=== PATIENT | female | born 1960 | race Caucasian/White ===

== ENCOUNTER 2019-08-17 07:08 | Day surgery (SDC) | payer OTHER ==
[~2019-08-17] VITALS: Ht 162.6 cm; Wt 93.9 kg
[2019-08-17] MEDS ORDERED: FUROSEMIDE 40 MG/4 ML VIAL ONE (12:17)
[2019-08-17] MEDS ORDERED: DILTIAZEM HCL 25 MG/5 ML VIAL ONE (12:30)
[2019-08-17 13:05] VITALS: BP_SYST 134
[2019-08-17] MEDS ORDERED: DILTIAZEM HCL 25 MG/5 ML VIAL IVP ONE (13:15)
[2019-08-17 14:21] LABS: CALCIUM 7.8 mg/dL (8.4-11.0); CREATININE 4.37 mg/dL (0.55-1.30); POTASSIUM 4.5 mmol/L (3.5-5.1)
[2019-08-17 20:31] LABS: BASOPHILS % (AUTO) 0.5 % (0.0-2.0); EOSINOPHILS # (AUTO) 0.2 K/uL (0.0-0.4); EOSINOPHILS % (AUTO) 3.8 % (0.0-4.0); HEMOGLOBIN 10.4 g/dL (12.0-16.0); LYMPHOCYTES % (AUTO) 31.4 % (20.5-51.5); MEAN CORPUSCULAR HEMOGLOBIN 31 pg (27-31); MEAN CORPUSCULAR HGB CONC 34 % (32-36); MEAN CORPUSCULAR VOLUME 93 fL (79.0-98.0); MONOCYTES # (AUTO) 0.6 K/uL (0.0-1.0); MONOCYTES % (AUTO) 9.8 % (1.7-9.3); NEUTROPHILS # (AUTO) 3.4 K/uL (1.8-7.7); NEUTROPHILS % (AUTO) 54.5 % (40.0-70.0); PLATELET COUNT (AUTO) 179 K/uL (130-430); RED BLOOD CELL COUNT(AUTO) 3.33 MIL/uL (4.2-6.2); RED CELL DISTRIBUTION WIDTH 12.5 % (9.0-15.0); WHITE BLOOD COUNT (AUTO) 6.3 K/uL (4.8-10.8)
[2019-08-17 20:32] LABS: INR 0.9 (0.8-1.2)
[2019-08-17 20:33] LABS: CALCIUM 9.4 mg/dL (8.4-11.0); CREATININE 4.56 mg/dL (0.55-1.30); POTASSIUM 4.6 mmol/L (3.5-5.1)
== END 2019-08-17 16:15 | disposition home or self-care (01) ==
LOC: SMU 07:08 → SDS 07:08
PROVIDERS: ATTEND Surgery Vascular Surgery
DX: I12.0 Hypertensive chronic kidney disease with stage 5 chronic kidney disease or end stage renal disease (principal); N18.6 End stage renal disease; E11.22 Type 2 diabetes mellitus with diabetic chronic kidney disease; E78.5 Hyperlipidemia, unspecified; F32.9 Major depressive disorder, single episode, unspecified; E66.9 Obesity, unspecified; Z68.35 Body mass index [BMI] 35.0-35.9, adult; Z79.899 Other long term (current) drug therapy; Z79.82 Long term (current) use of aspirin
CPT/HCPCS: 36415; 49324; 49326; 71046; 80048; 83735; 85025; 85610; 85730; C1727; J1940; J3490; J7120

== ENCOUNTER 2022-07-19 06:00 | Day surgery (SDC) | payer OTHER ==
[~2022-07-19] VITALS: Ht 162.6 cm; Wt 81.6 kg
[2022-07-19] MEDS: fentaNYL CITRATE/PF 100 MCG/2 ML AMP ONE ×3 (08:15→08:31)
[2022-07-19] MEDS: MIDAZOLAM HCL 5 MG/5 ML VIAL ONE ×4 (08:15→08:26)
[2022-07-19] MEDS ORDERED: MIDAZOLAM HCL 5 MG/5 ML VIAL ONE (08:34)
[2022-07-19] MEDS ORDERED: fentaNYL CITRATE/PF 100 MCG/2 ML AMP ONE (08:37)
[2022-07-20 11:00] VITALS: BP_SYST 120
== END 2022-07-19 09:50 | disposition home or self-care (01) ==
LOC: SDS 06:00 → SMU 06:00 → SDS 09:50
PROVIDERS: ATTEND Internal Medicine Gastroenterology
DX: Z12.11 Encounter for screening for malignant neoplasm of colon (principal); K57.30 Diverticulosis of large intestine without perforation or abscess without bleeding; K64.8 Other hemorrhoids; I12.9 Hypertensive chronic kidney disease with stage 1 through stage 4 chronic kidney disease, or unspecified chronic kidney disease; N18.9 Chronic kidney disease, unspecified; Z99.2 Dependence on renal dialysis; E78.2 Mixed hyperlipidemia; Z79.899 Other long term (current) drug therapy; Z20.822 Contact with and (suspected) exposure to COVID-19
CPT/HCPCS: 36415 ×2; 45378; 87426; 99152; U0003; G0378; J1956; J2250; J3010